=== PATIENT | female | born 1985 | race African-American/Black ===

== ENCOUNTER 2019-07-29 12:09 | Emergency (ER) | payer OTHER, SELFPAY ==
[2019-07-29 12:15] VITALS: BP 140/83; PULSE 78; RESP 16; TEMP 36.8; O2SAT 100
--- NOTE | 2019-07-29 13:05 | ED.URI ---
HPI - URI/Sore Throat General Chief Complaint: Upper Respiratory Infection Stated Complaint: sore throat/fever/cough Time Seen by Provider: 07/29/19 13:22 Source: patient and RN notes reviewed Mode of arrival: ambulatory Limitations: no limitations History of Present Illness HPI Narrative: 33 year old female accompanied by sons with complaints of 2 day history of sore throat, feverish, body aches, cough with some white sputum but mainly dry hacky cough.Patient states that she has been taking Tyenol cold and flu OTC for her symptoms.Patient describes her throat pain as burning rates it 11/24, request strep screen but refuses flu swab. Patient states that she did not receive flu shot this season. Patient does have a history of asthma does not have an inhaler, continues to use tobacco daily. MD elicited complaint: fever, cough and sore throat Pertinent past history: asthma and other (tobacco abuse) Onset (ago): day(s) (2) Consistency: constant Severity: moderate Pain scale (0-10): 7 Description of mucous: other (white) Able to tolerate fluids by mouth: Yes Exacerbating factors: swallowing Context: sick contacts Associated symptoms: fever, chills, myalgias, sore throat and cough Treatments prior to arrival: other (tylenol cold and flu OTC) Related Data Home Medications Medication Instructions Recorded Confirmed hydrochlorothiazide 12.5 mg PO DAILY 07/29/19 07/29/19 lisinopril 10 mg PO DAILY 07/29/19 07/29/19 losartan 100 mg PO DAILY 07/29/19 07/29/19 Allergies Allergy/AdvReac Type Severity Reaction Status Date / Time Sulfa (Sulfonamide Allergy Unknown Unknown Verified 07/29/19 12:22 Antibiotics) Review of Systems Review of Systems: Narrative: CONSTITUTIONAL:reports feverish, chills, or sweats. EYES: Denies visual changes, redness, or discharge. ENT: reports rhinorrhea, congestion, sore throat, no otalgia. CARDIOVASCULAR: Denies chest pain, palpitations, or edema. RESPIRATORY:Positive cough denies dyspnea. or wheezing GASTROINTESTINAL: Denies abdominal pain, nausea, vomiting, or diarrhea. GENITOURINARY: Denies dysuria or hematuria. SKIN: Denies rash or itching. MUSCULOSKELETAL: Denies back pain, joint pain, states body aches NEUROLOGIC: Denies headache, numbness, or weakness. PSYCHIATRIC: history of anxiety or depression. All systems reviewed & are unremarkable except as noted in HPI and below PMFSH Past Medical History Medical History (Updated 08/01/19 @ 10:39 by Gwen Christopher NP) Arthritis Asthma Bronchitis Cervical cancer Depression Hypertension Surgical History Surgical History (Updated 08/01/19 @ 10:40 by Gwen Christopher NP) History of appendectomy Status post surgical removal of both fallopian tubes Social History Social History (Updated 08/01/19 @ 10:41 by Gwen Christopher NP) Smoking packs per day: 0.5 Smoking cigarettes per day: 10.0 Years smoked: 15 Smoking pack-years: 7.50 Smoking status: Current every day smoker Tobacco type: cigarettes Living arrangements: with family Gender identity (if verbalized by the patient): Female Comments At time of signature, agree with nursing past medical, surgical, social and family history. There is no relevant family history pertinent to the presenting complaint Exam Narrative: Exam Narrative: GENERAL: Ill-appearing, well-nourished, and in no acute distress. HEAD: Normocephalic, atraumatic. EYES: PERRLA and EOMI. ENT: Nares clear, clear rhinorrhea no epistaxis. Mucous membranes moist.TM's normal with good light reflex, throat red and swollen, no exudates or lesions, tonsils red and enlarged. NECK: Supple.lymphadenopathy CHEST: Clear to auscultation. No respiratory distress.cough present, no wheezing noted,SAO2 100% on room air. HEART: Regular rate and rhythm. No murmur heard. Normal peripheral pulses. ABDOMEN: Soft, nontender, nondistended, normal active bowel sounds. EXTREMITIES: Normal range of motion. No edema. SKIN: Warm,
== END 2019-07-29 13:25 | disposition home or self-care (01) ==
PROVIDERS: Emergency Provider Registered Nurse; PCP Family Medicine
DX: J06.9 Acute upper respiratory infection, unspecified (principal); J03.90 Acute tonsillitis, unspecified; F17.210 Nicotine dependence, cigarettes, uncomplicated; M19.90 Unspecified osteoarthritis, unspecified site; J45.909 Unspecified asthma, uncomplicated; E05.90 Thyrotoxicosis, unspecified without thyrotoxic crisis or storm; Z85.41 Personal history of malignant neoplasm of cervix uteri
CPT/HCPCS: 87081; 87880; 99213; G0463

== ENCOUNTER 2021-01-11 09:07 | Emergency (ER) | payer OTHER, SELFPAY ==
[2021-01-11 09:20] VITALS: BP 159/103; PULSE 64; RESP 20; TEMP 36.9; O2SAT 100
--- NOTE | 2021-01-11 09:51 | ED.URI ---
HPI - URI/Sore Throat General Stated Complaint: feels like knot in throat sob Time Seen by Provider: 01/11/21 09:51 Source: patient and family History of Present Illness HPI Narrative: SORE THROAT NO TROUBLE SWALLOWING NO DROOLING MD elicited complaint: sore throat Related Data Home Medications Medication Instructions Recorded Confirmed hydrochlorothiazide 12.5 mg PO DAILY 07/29/19 07/29/19 lisinopril 10 mg PO DAILY 07/29/19 07/29/19 losartan 100 mg PO DAILY 07/29/19 07/29/19 Allergies Allergy/AdvReac Type Severity Reaction Status Date / Time Sulfa (Sulfonamide Allergy Unknown Unknown Verified 07/29/19 12:22 Antibiotics) Review of Systems Review of Systems: CONSTITUTIONAL: Denies fever, chills, or sweats. EYES: Denies visual changes, redness, or discharge. ENT: Denies rhinorrhea, congestion, sore throat, or otalgia. CARDIOVASCULAR: Denies chest pain, palpitations, or edema. RESPIRATORY: Denies cough or dyspnea. GASTROINTESTINAL: Denies abdominal pain, nausea, vomiting, or diarrhea. GENITOURINARY: Denies dysuria or hematuria. SKIN: Denies rash or itching. MUSCULOSKELETAL: Denies back pain, joint pain, or myalgia. NEUROLOGIC: Denies headache, numbness, or weakness. PSYCHIATRIC: Denies anxiety or depression. [facility] Past Medical History Medical History (Updated 01/11/21 @ 09:55 by ROMAIN Long) Arthritis Asthma Bronchitis Cervical cancer Depression Hypertension Surgical History Surgical History (Updated 08/01/19 @ 10:40 by Gwen Christopher NP) History of appendectomy Status post surgical removal of both fallopian tubes Social History Social History (Updated 08/01/19 @ 10:41 by Gwen Christopher NP) Smoking packs per day: 0.5 Smoking cigarettes per day: 10.0 Years smoked: 15 Smoking pack-years: 7.50 Smoking status: Current every day smoker Tobacco type: cigarettes Gender identity (if verbalized by the patient): Female Comments At time of signature, agree with nursing past medical, surgical, social and family history. There is no relevant family history pertinent to the presenting complaint Exam Narrative: GENERAL: Well-appearing, well-nourished, and in no acute distress. HEAD: Normocephalic, atraumatic. EYES: PERRLA and EOMI. ENT: Nares clear, no rhinorrhea or epistaxis. Mucous membranes moist. NECK: Supple. CHEST: Clear to auscultation. No respiratory distress. HEART: Regular rate and rhythm. No murmur heard. Normal peripheral pulses. ABDOMEN: Soft, nontender, nondistended, normal active bowel sounds. EXTREMITIES: Normal range of motion. No edema. SKIN: Warm, dry, no rash. NEURO: No focal deficits. Alert and oriented x3. [place] Coma Scale Eye Opening: Spontaneous 4 [place] Coma Scale Motor: Obeys Commands 6 [place] Coma Scale Verbal: Oriented 5 [place] Coma Scale Total 15 Course Vital Signs Vital signs: Vital Signs Temperature 36.9 C 01/11/21 09:20 Pulse Rate 64 01/11/21 09:20 Respiratory Rate 20 01/11/21 09:20 Blood Pressure 159/103 H 01/11/21 09:20 Pulse Oximetry 100 01/11/21 09:20 Temperature 36.9 C 01/11/21 09:20 Pulse Rate 64 01/11/21 09:20 Respiratory Rate 20 01/11/21 09:20 Blood Pressure 159/103 H 01/11/21 09:20 Pulse Oximetry 100 01/11/21 09:20 Addressed elevated BP today. Today's blood pressure higher than recommended range. Discussed importance of follow -up with PCP and possible terminal make up operator effects/cardiovascular events related to HTN. Currently patient denies headache, dizziness, vision changes, CP or shortness of breath. Please LA schedule a followup visit with your personal physician for further evaluation and treatment. Including recheck and discussion of your blood pressure. If your symptoms persist, change or worsen significantly before you can contact your personal physician then please, without delay, go to the emergency department for further evaluation Discussed with patient hypertension. Today's bl
[2021-01-12 22:45] LABS: SARS-CoV-2 RNA PCR Negative
== END 2021-01-11 10:30 | disposition home or self-care (01) ==
PROVIDERS: Emergency Provider Nurse Practitioner Family
DX: J06.9 Acute upper respiratory infection, unspecified (principal); J02.9 Acute pharyngitis, unspecified; Z20.822 Contact with and (suspected) exposure to COVID-19; F17.210 Nicotine dependence, cigarettes, uncomplicated; M19.90 Unspecified osteoarthritis, unspecified site; J45.909 Unspecified asthma, uncomplicated; I10 Essential (primary) hypertension; F32.9 Major depressive disorder, single episode, unspecified; Z85.41 Personal history of malignant neoplasm of cervix uteri
CPT/HCPCS: 87081; 87880; 99213; C9803; G0463; U0003; U0005